=== PATIENT | female | born 1990 | race Two or more races ===

== ENCOUNTER 2024-07-04 00:08 | Emergency (ER) | payer OTHER ==
[~2024-07-04] VITALS: Ht 165.1 cm; Wt 45.4 kg
[2024-07-04] MEDS ORDERED: KETOROLAC TROMETHAMINE 10 MG TABLET PO STA (06:42)
[2024-07-04] MEDS ORDERED: TETANUS & DIPHTHERIA TOX,ADULT 0.5 ML VIAL IM STA (06:43)
[2024-07-04] MEDS ORDERED: CIPRO500 MG PO (06:56)
== END 2024-07-04 07:42 | disposition home or self-care (01) ==
LOC: ER 00:10
DX: S60.511A Abrasion of right hand, initial encounter (principal); W55.01XA Bitten by cat, initial encounter; Y93.89 Activity, other specified; Y92.89 Other specified places as the place of occurrence of the external cause